=== PATIENT | female | born 1985 | race Caucasian/White ===

== ENCOUNTER 2016-10-14 19:00 | Emergency (ER) | payer BC ==
[~2016-10-14] VITALS: Ht 167.6 cm; Wt 99.5 kg
[2016-10-14 19:49] VITALS: Ht 167.6 cm; Wt 99.5 kg
--- NOTE | 2016-10-14 22:22 | RADRPT ---
PROCEDURE: Ultrasound of the left foot soft tissues CLINICAL INDICATION: Lump. Pain.. TECHNIQUE: Limited ultrasound survey of the soft tissues of the left foot and ankle was performed. COMPARISON: None. FINDINGS: Limited ultrasound examination is without evidence for definable mass or fluid collection. IMPRESSION: No fluid collection or mass identified. RPTAT: HMVK .Mike Rojas MD, MD Date Time Electronically viewed and signed by .Mike Rojas MD, on 10/14/2016 22:22 .K/
[2016-10-14] MEDS ORDERED: NAPR-260 PO (22:28)
--- NOTE | 2016-10-15 00:22 | ERD ---
ER Documentation Chief Complaint Date/Time DATE: 10/15/16 TIME: 00:22 Chief Complaint c/o left toe/foot pain since sat + swelling hard time walking on it HPI Patient is a 30-year-old female with no past medical history who presents to the ED with left foot pain 2 months. She states that she has had a lump on the top of her foot and states that it is painful when she palpates it. She states that she has gone to a primary care doctor however her primary care is told her to see a ladle filler and she has not had money to go see a ladle filler. Therefore she decided to come to the ER. Denies radiation of pain. Denies erythema or swelling. Denies difficulty walking. Denies chest pain, cough, shortness of breath or difficulty breathing. Denies headache or dizziness. ROS All systems reviewed and are negative except as per history of present illness. Medications Home Meds Active Scripts Naproxen* (Naprosyn*) 500 Mg Tablet, 500 MG PO BID Y for PAIN AND/OR INFLAMMATION, #30 TAB Prov:RHIANNA DE LEON PA-C 10/14/16 Allergies Allergies: Coded Allergies: No Known Drug Allergy (Verified Allergy, Unknown, 10/14/16) PMhx/Soc History of Surgery: Yes (gallbladder ) Anesthesia Reaction: No Hx Neurological Disorder: No Hx Respiratory Disorders: No Hx Cardiac Disorders: Yes (HTN, Tachycardia) Hx Psychiatric Problems: No Hx Miscellaneous Medical Probl: No (no hx) Hx Alcohol Use: No Hx Substance Use: No Hx Tobacco Use: No Smoking Status: Never smoker FmHx Family History: No coronary disease, No diabetes, No other Physical Exam Vitals Vital Signs Date Time Temp Pulse Resp B/P Pulse Ox O2 Delivery O2 Flow Rate FiO2 10/14/16 19:49 99.5 71 20 130/93 100 Physical Exam GENERAL: Well-developed, well-nourished female. Appears in no acute distress. HEAD: Normocephalic, atraumatic. EYES: Pupils are equally reactive bilaterally. EOMs grossly intact. No conjunctival erythema. ENT: Moist mucous membranes. No uvula deviation. No kissing tonsils. No exudates. NECK: Supple. No lymphadenopathy or thyromegaly. No meningismus. negative kernig. negative brudinski. LUNG: Clear to auscultation bilaterally. No rhonchi, wheezing, rales or coarse breath sounds. HEART: Regular rate and rhythm. No murmurs, rubs or gallops.. Extremities: Equal pulses bilaterally. No peripheral clubbing, cyanosis or edema. No unilateral leg swelling. 2 mobile lesions on the dorsum of her left foot. Pulses intact bilaterally. No signs of infection. No erythema or warmth. No streaking. Negative Homans sign. No palpable cord. NEUROLOGIC: Alert and oriented. Moving all four extremities. 5/5 strength in all extremities. Normal speech. Steady gait. SKIN: Normal color. Warm and dry. No rashes or lesions. Capillary refill < 2 seconds Procedures/MDM ER COURSE: I kept the patient and/or family informed of laboratory and diagnostic imaging results throughout the emergency room course. IMAGING STUDIES [place] [id number] Radiology Main Line: [phone] DIAGNOSTIC IMAGING REPORT Patient: CROW IRIZARRY : 1985 Age: 30 Sex: F MR #: [id number] DOS: 10/14/162056 Ordering MD: RHIANNA DE LEON PA-C Location: [facility] Room/Bed: PROCEDURE: Ultrasound of the left foot soft tissues CLINICAL INDICATION: Lump. Pain.. TECHNIQUE: Limited ultrasound survey of the soft tissues of the left foot and ankle was performed. COMPARISON: None. FINDINGS: Limited ultrasound examination is without evidence for definable mass or fluid collection. IMPRESSION: No fluid collection or mass identified. RPTAT: HMVK .Mike Rojas MD, MD Date Time Electronically viewed and signed by .Mike Rojas MD, MD on 10/14/2016 22:22 .K/ CC: RHIANNA DE LEON PA-C MEDICAL DECISION MAKING: This is a 30-year-old who presents with a lump on her top left foot foot 2 months. Vital signs were reviewed. Patient is afebrile. Patient is not hypoxic. She is not toxic or ill-appearing. Ultrasound is read by radiologist unremarkable. Patient has 2 bumps of unknown etiology. I have low suspicion for DVT or fracture dislocation. No x-ray was ordered as patient did not have trauma and there were no signs of fracture dislocation. No step-offs or deformities. Low suspicion for dislocation, fracture, septic joint, compartment syndrome, osteomyelitis, cellulitis, avascular necrosis, neurological injury, vascular injury, tendon laceration. DISCHARGE: At this time, patient is stable for discharge and outpatient management with no new complaints during the ER course. Patient was sent home with copy of ultrasound, Naprosyn and to follow-up with a ladle filler. Patient will be discharged home with instructions to recheck for new or worsening symptoms such as fever, nausea, weakness, LOC and to follow up with primary care in the next 1 -2 days. Patient was advised to return to the ER for any new or worsening symptoms. Plan was discussed and patient and/or family understands and agrees. Home instructions were given. Departure Diagnosis: Primary Impression: Lesion of skin of foot Condition: Stable Patient Instructions: Contusion, Foot (Child) [facility] Usted se ho hecho un examen mdico de control que le indica que no est en jacque condicin que requiera tratamiento urgente en el Departamento de Emergencia. Un estudio ms profundo y el tratamiento de wagner condicin pueden esperar sin ningn riesgo hasta que usted sea atendida/o en el consultorio de wagner mdico o jacque cl isadora. Es responsabilidad suya arreglar jacque jina para el seguimiento del edwin. MANEJO DE CONDICIONES NO URGENTES EN EL FUTURO 1) Si usted tiene un mdico de atencin primaria: Usted debera llamar a wagner mdico de atencin primaria antes de venir al departamento de emergencia. Despus de las horas de consultorio, wagner doctor o wagner asociado/a est disponible por telfono. El mdico o enfermero de bethany en el servicio telefnico puede asesorarle por judi medio para atender el problema, o edwin contrario se puede programar jacque jina. 2) Si usted no tiene un mdico de atencin primaria: Llame al mdico o clnica de referencia que aparece abajo dimitry las horas de consultorio para hacer jacque jina para que le vean. CLINICAS: [place] [address] [phone] [facility] [phone] [facility] [phone] [address] [facility]. [place] [address] [phone] [facility]. [place] [address] [phone] [facility] [phone] [address] Additional Instructions: Llame al doctor MAANA y diane jacque JINA PARA DENTRO DE 1-2 OSMAN.Dgale a la secretaria que nosotros le instruimos hacer esta jina.Avise o llame si wagner condicin se empeora antes de la jina. Regresa aqui si peor o no mejor. RHIANNA DE LEON PA-C Oct 15, 2016 00:22
== END 2016-10-14 22:54 | disposition home or self-care (01) ==
LOC: FTE 19:00
DX: L98.9 Disorder of the skin and subcutaneous tissue, unspecified (principal); I10 Essential (primary) hypertension
CPT/HCPCS: 76536